=== PATIENT | male | born 1980 | race Two or more races ===

== ENCOUNTER 2024-04-19 22:31 | Emergency (ER) | payer MEDICAID, OTHER ==
[~2024-04-19] VITALS: Ht 162.6 cm; Wt 74.6 kg
[2024-04-19 23:00] VITALS: BP 135/83; PULSE 64; RESP 14; O2SAT 98
== END 2024-04-20 02:23 | disposition left against medical advice (07) ==
LOC: ER 22:31
DX: R51.9 Headache, unspecified (principal); Z53.21 Procedure and treatment not carried out due to patient leaving prior to being seen by health care provider

== ENCOUNTER 2024-11-30 04:21 | Inpatient (IN) | payer MEDICAID, OTHER ==
[~2024-11-30] VITALS: Ht 165.1 cm; Wt 71.4 kg
[2024-11-30] MEDS: IOHEXOL 300 MG/ML 100ML BOTTLE IJ ONE (04:58)
--- NOTE | 2024-11-30 04:58 | ED.PDOC ---
History of Present Illness HPI Comments 44-year-old male complains of epigastric and right upper quadrant abdominal pain for the last 4 days. Unprovoked. No known modifying factors. Associated with some nausea and occasional vomiting Time Seen by MD: 04:41 Allergies: Coded Allergies: NO KNOWN ALLERGIES (Unverified , 04/19/24) Home Meds No Active Prescriptions or Reported Meds Information Source: Patient Severity: Moderate Timing: Days Duration: Since onset Past Medical History PAST MEDICAL HISTORY: Denies Surgical History: Appendectomy Social History Smoker: Non-Smoker Alcohol: Rarely Drugs: Denies Drug Use Gastrointestinal: reports: abdominal pain, nausea, vomiting Physical Exam General Appearance: Moderate Distress, Normal HEENT: Normal ENT Inspection, Pharynx Normal, TMs Normal Neck: Full Range of Motion, Non-Tender, Normal, Normal Inspection Respiratory: Chest Non-Tender, Lungs Clear, No Accessory Muscle Use, No Respiratory Distress, Normal Breath Sounds Cardiovascular: No Edema, No JVD, No Murmur, No Gallop, Normal Peripheral Pulses, Regular Rate/Rhythm Breast Exam: Deferred Gastrointestinal: Soft, Tenderness Genitalia: Deferred Pelvic: Deferred Rectal: Deferred Extremities: No calf tenderness, Normal capillary refill, Normal inspection, Normal range of motion, Non-tender, No pedal edema Musculoskeletal : Apperance: Normal Neurologic: Alert, manager services II-XII nml as Tested, No Motor Deficits, Normal Affect, Normal Mood, No Sensory Deficits Cerebellar Function: Normal Reflexes: Normal Skin: Dry, Normal Color, Warm Lymphatic: No Adenopathy Was a procedure done? Was a procedure done?: No Differential Dx Considerations may include: Differential diagnosis includes but is not limited to: gastritis, peptic ulcers, pancreatitis, cholecystitis, bowel obstruction, cholangitis and others X-Ray, Labs, Meds, VS Vital Signs Date Time Temp Pulse Resp B/P (MAP) Pulse Ox O2 Delivery O2 Flow Rate FiO2 11/30/24 10:04 51 17 150/90 (110) 99 11/30/24 07:59 98.1 48 18 157/97 (117) 98 98.1 11/30/24 06:18 77 16 127/72 11/30/24 05:45 55 20 135/84 11/30/24 04:45 97.4 58 18 117/75 (89) 97 Lab Test 11/30/24 05:43 11/30/24 05:03 Range/Units Urine Color Light-yellow Yellow Urine Clarity Clear Clear Urine pH 5.5 5.0-9.0 Urine Specific [place] 1.011 1.001-1.035 Urine Protein Negative Negative Urine Ketones Negative Negative Urine Blood Negative Negative /uL Urine Nitrite Negative Negative Urine Bilirubin Negative Negative Urine Urobilinogen Normal Negative mg/dL Urine Leukocyte Esterase Negative Negative /uL Urine RBC <1 0 - 3 /hpf Urine WBC <1 0 - 3 /hpf Urine Squamous Epithelial Cells None seen <5 /hpf Urine Bacteria None seen None Seen /hpf Urine Glucose Normal Normal mg/dL White Blood Count 8.2 4.4-10.8 10^3/uL Red Blood Count 4.43 L 4.5-5.90 10^6/uL Hemoglobin 13.5 13.5-17.5 g/dL Hematocrit 39.4 L 41.0-53.0 % Mean Corpuscular Volume 89.0 80.0-100.0 fL Mean Corpuscular Hemoglobin 30.4 28.0-32.0 pg Mean Corpuscular Hemoglobin Concent 34.2 32.0-36.0 g/dL Red Cell Distribution Width 13.3 11.8-14.3 % Platelet Count 268 140-450 10^3/uL Mean Platelet Volume 7.7 6.9-10.8 fL Neutrophils (%) (Auto) 61.0 37.0-80.0 % Lymphocytes (%) (Auto) 31.2 10.0-50.0 % Monocytes (%) (Auto) 5.3 0.0-12.0 % Eosinophils (%) (Auto) 2.0 0.0-7.0 % Basophils (%) (Auto) 0.5 0.0-2.0 % Neutrophils # (Auto) 5.0 1.6-8.6 10 ^3/uL Lymphocytes # (Auto) 2.6 0.4-5.4 10 ^3/uL Monocytes # (Auto) 0.4 0-1.3 10 ^3/uL Eosinophils # (Auto) 0.2 0-0.8 10 ^3/uL Basophils # (Auto) 0 0-0.2 10 ^3/uL Nucleated Red Blood Cells 0.1 % Sodium Level 142 136-145 mmol/L Potassium Level 3.4 L 3.5-5.1 mmol/L Chloride Level 110 H 98-107 mmol/L Carbon Dioxide Level 24 20-31 mmol/L Anion Gap 8 5-15 Blood Urea Nitrogen 10 9-23 mg/dL Creatinine 0.89 0.700-1.30 mg/dL Glomerular Filtration Rate Calc 108 >90 mL/min BUN/Creatinine Ratio 11.2 10.0-20.0 Serum Glucose 104 74-106 mg/dL Calcium Level 8.9 8.7-10.4 mg/dL Total Bilirubin 0.5 0.2-1.0 mg/dL Aspartate Amino Transferase (AST) 55 H 13-40 U/L Alanine Aminotransferase (ALT) 34 7-40 U/L Alkaline Phosphatase 99 46-116 U/L Total Protein 6.4 5.7-8.2 g/dL Albumin 4.0 3.2-4.8 g/dL Lipase 54 H 12-53 U/L Current Medications Medications (Trade) Dose Ordered Sig/Denis Route Start Time Stop Time Status Last Admin Ondansetron HCl (Zofran) 4 mg ONCE ONCE IV 11/30/24 05:00 11/30/24 05:01 DC 11/30/24 05:45 Sodium Chloride 1,000 ml @ 1,000 mls/hr Q1H ONCE IVB 11/30/24 05:00 11/30/24 05:59 DC 11/30/24 05:42 Morphine Sulfate 4 mg ONCE ONCE IV 11/30/24 05:00 11/30/24 05:01 DC 11/30/24 05:45 X-Ray, Labs, Meds, VS Comment Course in the emergency department eventful patient came in complaining of an abdominal pain with nausea vomiting for the past three days Patient with a history of appendectomy CT of the abdomen and pelvis shows mostly small hemangioma the liver side CBC normal Urine negative CMP normal except for potassium of 3.4 and a lipase of 54 The ultrasound of the gallbladder slows cholelithiasis with large and mildly distended gallbladder and mildly distended biliary duct Patient will be admitted for further care Time of 1ST Reevaluation: 04:57 Reevaluation 1ST: Unchanged Time of 2ND Reevaluation: 08:18 Reevaluation 2ND: Unchanged Patient Education/Counseling: Diagnosis, Treatment, Need For Follow Up Family Education/Counseling: Diagnosis, Treatment, Need For Follow Up, No Family Present Departure 1 Departure Time of Disposition: 08:20 Impression: Primary Impression: Upper abdominal pain Additional Impression: Cholelithiasis and cholecystitis without obstruction Qualified Codes: K80.00 - Calculus of gallbladder with acute cholecystitis without obstruction Disposition: ADMITTED INPATIENT Condition: Stable e-Prescriptions No Active Prescriptions or Reported Meds Critical Care Note Critical Care Time?: No Stability Stability form required: Yes Unstable for transfer: Requires medication (Requires Med for stabilization) Heart Score Heart Score: Heart Score Response (Comments) Value History N/A 0 EKG N/A 0 Age <45 0 Risk Factors No known risk factors 0 Troponin N/A 0 Total 0 DEDRICK HUTTON MD Nov 30, 2024 04:58 LISETTE MARTÍNEZ MD Nov 30, 2024 08:21
[2024-11-30 05:39] LABS: Basophils # (auto) 0 10 ^3/uL (0-0.2); Basophils % (auto) 0.5 % (0.0-2.0); Eosinophils # (auto) 0.2 10 ^3/uL (0-0.8); Hematocrit 39.4 % (41.0-53.0); Hemoglobin 13.5 g/dL (13.5-17.5); Lymphocytes # (auto) 2.6 10 ^3/uL (0.4-5.4); Lymphocytes % (auto) 31.2 % (10.0-50.0); Mean Corpuscular Hemoglobin 30.4 pg (28.0-32.0); Mean Corpuscular Hgb Conc. 34.2 g/dL (32.0-36.0); Monocytes # (auto) 0.4 10 ^3/uL (0-1.3); Monocytes % (auto) 5.3 % (0.0-12.0); Nucleated Red Blood Cells % 0.1 %; Platelet Count (auto) 268 10^3/uL (140-450); Red Blood Cells 4.43 10^6/uL (4.5-5.90); Red Cell Distribution Width 13.3 % (11.8-14.3); White Blood Cell 8.2 10^3/uL (4.4-10.8)
[2024-11-30 05:42] LABS: Alanine Aminotransferase 34 U/L (7-40); Alkaline Phosphatase 99 U/L (46-116); Anion Gap 8 (5-15); BUN/Creatinine Ratio 11.2 (10.0-20.0); Blood Urea Nitrogen 10 mg/dL (9-23); Calcium 8.9 mg/dL (8.7-10.4); Carbon Dioxide 24 mmol/L (20-31); Glucose 104 mg/dL (74-106); Sodium 142 mmol/L (136-145)
[2024-11-30] MEDS: SODIUM CHLORIDE 0.9% 1,000 ML IVB ONE (05:42)
[2024-11-30 05:43] LABS: Bilirubin, Total 0.5 mg/dL (0.2-1.0); Total Protein 6.4 g/dL (5.7-8.2)
[2024-11-30 05:44] LABS: Urine Bacteria None Seen /hpf (None Seen)
[2024-11-30] MEDS: ONDANSETRON HCL 4 MG/2 ML VIAL IV ONE (05:45)
[2024-11-30] MEDS: MORPHINE SULFATE 4 MG/ML SYR/VIAL IV ONE (05:45)
[2024-11-30 05:59] LABS: Urine Blood Negative /uL (Negative); Urine Clarity Clear (Clear); Urine Color Light-Yellow (Yellow); Urine Protein, UAD Negative (Negative); Urine Specific Gravity 1.011 (1.001-1.035); Urine Squamous Epithelial Cell None Seen /hpf (<5); Urine Urobilinogen Normal (Negative); Urine WBC <1 /hpf (0 - 3); Urine pH 5.5 (5.0-9.0)
[2024-11-30 05:59] LABS: Aspartate Aminotransferase 55 U/L (13-40); Chloride 110 mmol/L (98-107); Lipase 54 U/L (12-53); Potassium 3.4 mmol/L (3.5-5.1)
--- NOTE | 2024-11-30 06:36 | DVH ---
Exam: CT CT AB PEL WITH IV CON ONLY History: abd pain Comparison Study: None available at time of dictation. Contrast: 100 cc Omnipaque 300 TECHNIQUE: A digital glass beveler image was obtained. During the uneventful, intravenous administration of c ontrast material, multislice data acquisition was obtained through the abdomen and pelvis. The data s et was subsequently reconstructed into axial images. Images were reviewed on a work station using a c ombination of axial and multiplanar using a variety of window levels and settings. All CT scans at this medical facility are performed using dose modulation techniques as appropriate t o a performed exam including the following: Automated exposure control was utilized; adjustment of th e MA and/or KV according to patient size; and use of iterative reconstruction technique. Radiation Dose Information: CT Dose: CTDI volume is 7.52 mGy. Dose-length product is 411.45 mGy*cm FINDINGS: Imaged portions of the lung bases appear unremarkable. There is a small hiatal hernia. 0.4 cm hyperenhancing lesion in the left hepatic lobe. There is a small amount of pericholecystic flu id without evidence of gallbladder distention. The spleen, pancreas and adrenal glands appear unremar kable. The kidneys enhance symmetrically without hydronephrosis. No evidence of bowel obstruction or focal bowel wall thickening. No free fluid, free air, or adenopat hy. No suspicious osseous lesion. IMPRESSION: 1. Pericholecystic fluid without evidence of gallbladder distention. Nonspecific. Right upper quadran t ultrasound is recommended 2. 0.4 cm hyperenhancing lesion of the left hepatic lobe may represent small hemangioma. Indeterminat e. Follow-up is recommended.
--- NOTE | 2024-11-30 08:05 | DVH ---
Procedure: US GALLBLADDER 11/30/2024 07:26 AM Indication: abn pain Comparison: None Technique: Grayscale and color images of the right upper quadrant were obtained. FINDINGS: ASCITES: None. LIVER: Liver measures 16 cm in craniocaudal. Liver parenchyma is homogeneous in echotexture. No foca l lesion is identified. No intrahepatic ductal dilatation. Normal directional flow is seen in the po rtal vein. GALLBLADDER: Mobile gallstone seen in gallbladder lumen. Small amount of sludge noted. Gallbladder w all appears thickened measuring up to 0.6 cm. Sonographic Horne's sign is negative. COMMON BILE DUCT: 0.8 cm in caliber. PANCREAS: Visualized portions are unremarkable. RIGHT KIDNEY: Normal in size, 10.5 cm in length without hydronephrosis. No focal lesions identified. AORTA, IVC: Visualized portions are unremarkable. OTHER: None. IMPRESSION: 1. Cholelithiasis, gallbladder sludge and gallbladder wall thickening with negative sonographic jassi y's sign that may represent chronic cholecystitis or developing acute cholecystitis. Recommend clinic al and biochemical correlation. 2. Mildly dilated CBD measuring 0.8 cm. Choledocholithiasis can not be ruled out. Correlate with bi lirubin. Further evaluation with MRCP could be completed if a distal obstructive process is suspected .
[2024-11-30] MEDS: KETOROLAC TROMETH 30 MG/ML 1ML VIAL IV ONE (08:41)
--- NOTE | 2024-11-30 10:21 | DVHHP2 ---
History of Present Illness Reason for Visit: Upper abdominal pain History of Present Illness The patient is a 44-year-old male who denies past medical history presented to [facility] ED with complaint of right upper quadrant abdominal pain for a proximally 4 days duration. Patient reports symptoms progressively get worse with associated nausea, vomiting, rating pain 7/10 numeric scale, getting worse today that prompted this visit. Patient was seen and evaluated in the ED, laboratory data shows WBC 8.2, platelets 268, sodium 142, potassium 3.4, BUN 10, creatinine 0.89, GFR 108, glucose 104, lipase 54, AST 55, ALT 34, blood pressure 150/90, heart rate 52, temperature 98.1 F, O2 saturation 99% on room air. Gallbladder ultrasound revealing cholelithiasis, gallbladder sludge and bladder wall thickening with negative sonographic Horne's sign that may represent chronic cholecystitis or developing acute cholecystitis, mildly dilated CBD measuring 0.8 cm, choledocholithiasis can not be rule out. Patient was given IV morphine sulfate 4 mg x 1, please see medication orders section in the computer. On my assessment, patient denied chest pain, no headache, no dizziness, no diarrhea, no nausea or vomiting at this moment, no fever, no chills.No other modifying factor or other associated signs and symptoms noted. The patient was admitted to the hospital for further evaluation and medical management. Past Medical History Denies past medical history Past Surgical History Appendectomy Family History Reviewed, noncontributory to the management of this case. Past Social History The patient lives at home, denies smoking, alcohol or illicit drugs abuse. Review of Systems Constitutional: No: Fever, Chills, Sweats, Weakness, Malaise, Other Eyes: No: Pain, Vision change, Conjunctivae inflammation, Eyelid inflammation, Other, Redness ENT: No: Ear pain, Ear discharge, Nose pain, Nose discharge, Nose congestion, Mouth pain, Mouth swelling, Throat pain, Throat swelling, Other Respiratory: No: Cough, Dry, Shortness of breath, SOB with excertion, Wheezing, Hemoptysis, Pleuritic Pain, Sputum, Wheezing, Other Cardiovascular: No: Chest Pain, Palpitations, Orthopnea, Paroxysmal Noc. Dyspnea, Edema, Lt Headedness, Other Gastrointestinal: Nausea, Vomiting, Abdominal Pain (Upper quadrant); No: Diarrhea, Constipation, Melena, Hematochezia, Other Genitourinary: No Dysuria, No Frequency, No Incontinence, No Hematuria, No Retention, No Other Musculoskeletal: No: other, neck pain, shoulder pain, arm pain, back pain, hand pain, leg pain, foot pain Skin: No: Rash, Lesions, Jaundice, Bruising, Other Neurological: No: Weakness, Numbness, Incoordination, Change in speech, Confusion, Seizures, Other Allergies: Coded Allergies: NO KNOWN ALLERGIES (Unverified , 04/19/24) Medications Current Medications Medications Dose Ordered Sig/Denis Route Start Time Stop Time Status Last Admin Dose Admin Sodium Chloride 10 ml Q8HR IV 11/30/24 14:00 UNV Acetaminophen/ Hydrocodone Bitart 1 tab Q4HP PRN PO 11/30/24 10:30 UNV Ondansetron HCl 4 mg Q4HP PRN IV 11/30/24 10:30 UNV Docusate Sodium 100 mg BIDPRN PRN PO 11/30/24 10:30 UNV Acetaminophen 650 mg Q6HP PRN PO 11/30/24 10:30 UNV Morphine Sulfate 2 mg Q4HPRN PRN IV 11/30/24 10:30 UNV Exam Vital Signs Vital Signs Date Time Temp Pulse Resp B/P (MAP) Pulse Ox O2 Delivery O2 Flow Rate FiO2 11/30/24 10:04 51 17 150/90 (110) 99 11/30/24 07:59 98.1 98.1 General Appearance: Alert, Oriented X3, Cooperative, No acute distress HEENT: Atraumatic, PERRLA, EOMI, Mucous membr. moist/pink Respiratory: Clear to auscultation, Normal air movement Cardiovascular: Regular rate, Normal S1, Normal S2, No murmurs Abdominal: Normal bowel sounds, Soft, No hepatospenomegaly, No masses, Other (Reports tenderness) Extremities: No clubbing, No cyanosis, No edema, Normal pulses, No tenderness/swelling Skin: No rashes, No breakdown, No significant lesion Neuro: Normal gait, Normal speech, Strength at 5/5 X4 ext, Normal tone, Sensation intact, Cranial nerves 3-12 NL, Reflexes 2+ Psych/Mental Status: Mental status NL, Mood NL Labs/Xrays Labs Test 11/30/24 05:43 11/30/24 05:03 Range/Units Urine Color Light-yellow Yellow Urine Clarity Clear Clear Urine pH 5.5 5.0-9.0 Urine Specific [place] 1.011 1.001-1.035 Urine Protein Negative Negative Urine Ketones Negative Negative Urine Blood Negative Negative /uL Urine Nitrite Negative Negative Urine Bilirubin Negative Negative Urine Urobilinogen Normal Negative mg/dL Urine Leukocyte Esterase Negative Negative /uL Urine RBC <1 0 - 3 /hpf Urine WBC <1 0 - 3 /hpf Urine Squamous Epithelial Cells None seen <5 /hpf Urine Bacteria None seen None Seen /hpf Urine Glucose Normal Normal mg/dL White Blood Count 8.2 4.4-10.8 10^3/uL Red Blood Count 4.43 L 4.5-5.90 10^6/uL Hemoglobin 13.5 13.5-17.5 g/dL Hematocrit 39.4 L 41.0-53.0 % Mean Corpuscular Volume 89.0 80.0-100.0 fL Mean Corpuscular Hemoglobin 30.4 28.0-32.0 pg Mean Corpuscular Hemoglobin Concent 34.2 32.0-36.0 g/dL Red Cell Distribution Width 13.3 11.8-14.3 % Platelet Count 268 140-450 10^3/uL Mean Platelet Volume 7.7 6.9-10.8 fL Neutrophils (%) (Auto) 61.0 37.0-80.0 % Lymphocytes (%) (Auto) 31.2 10.0-50.0 % Monocytes (%) (Auto) 5.3 0.0-12.0 % Eosinophils (%) (Auto) 2.0 0.0-7.0 % Basophils (%) (Auto) 0.5 0.0-2.0 % Neutrophils # (Auto) 5.0 1.6-8.6 10 ^3/uL Lymphocytes # (Auto) 2.6 0.4-5.4 10 ^3/uL Monocytes # (Auto) 0.4 0-1.3 10 ^3/uL Eosinophils # (Auto) 0.2 0-0.8 10 ^3/uL Basophils # (Auto) 0 0-0.2 10 ^3/uL Nucleated Red Blood Cells 0.1 % Sodium Level 142 136-145 mmol/L Potassium Level 3.4 L 3.5-5.1 mmol/L Chloride Level 110 H 98-107 mmol/L Carbon Dioxide Level 24 20-31 mmol/L Anion Gap 8 5-15 Blood Urea Nitrogen 10 9-23 mg/dL Creatinine 0.89 0.700-1.30 mg/dL Glomerular Filtration Rate Calc 108 >90 mL/min BUN/Creatinine Ratio 11.2 10.0-20.0 Serum Glucose 104 74-106 mg/dL Calcium Level 8.9 8.7-10.4 mg/dL Total Bilirubin 0.5 0.2-1.0 mg/dL Aspartate Amino Transferase (AST) 55 H 13-40 U/L Alanine Aminotransferase (ALT) 34 7-40 U/L Alkaline Phosphatase 99 46-116 U/L Total Protein 6.4 5.7-8.2 g/dL Albumin 4.0 3.2-4.8 g/dL Lipase 54 H 12-53 U/L PATIENT: AILIN PALACIOSACCT: [id number] UNIT: [id number] : 1980 LOC: ER ROOM / BED: / AGE / SEX: 44 / M ADM STATUS: REG ER SERVICE 0450 ORDERING PHYSICIAN: DEDRICK HUTTON MD PROCEDURE(s): ABPLIV - CT AB PEL WITH IV CON ONLY REASON: abd pain ORDER NUMBER(s): [id number], ACCESSION NUMBER(s): [id number] Exam: CT CT AB PEL WITH IV CON ONLY History: abd pain Comparison Study: None available at time of dictation. Contrast: 100 cc Omnipaque 300 TECHNIQUE: A digital pediatric registered nurse image was obtained. During the uneventful, intravenous administration of contrast material, multislice data acquisition was obtained through the abdomen and pelvis. The data set was subsequently reconstructed into axial images. Images were reviewed on a work station using a combination of axial and multiplanar using a variety of window levels and settings. All CT scans at this medical facility are performed using dose modulation techniques as appropriate to a performed exam including the following: Automated exposure control was utilized; adjustment of the MA and/or KV according to patient size; and use of iterative reconstruction technique. Radiation Dose Information: CT Dose: CTDI volume is 7.52 mGy. Dose-length product is 411.45 mGy*cm FINDINGS: Imaged portions of the lung bases appear unremarkable. There is a small hiatal hernia. 0.4 cm hyperenhancing lesion in the left hepatic lobe. There is a small amount of pericholecystic fluid without evidence of gallbladder distention. The spleen, pancreas and adrenal glands appear unremarkable. The kidneys enhance symmetrically without hydronephrosis. No evidence of bowel obstruction or focal bowel wall thickening. No free fluid, free air, or adenopathy. No suspicious osseous lesion. IMPRESSION: 1. Pericholecystic fluid without evidence of gallbladder distention. Nonspecific. Right upper quadrant ultrasound is recommended 2. 0.4 cm hyperenhancing lesion of the left hepatic lobe may represent small hemangioma. Indeterminate. Follow-up is recommended. ORDERING PHYSICIAN: LISETTE MARTÍNEZ MD PROCEDURE(s): GBUS - GALLBLADDER REASON: abn pain ORDER NUMBER(s): [id number], ACCESSION NUMBER(s): [id number] Procedure: US GALLBLADDER 11/30/2024 07:26 AM Indication: abn pain Comparison: None Technique: Grayscale and color images of the right upper quadrant were obtained. FINDINGS: ASCITES: None. LIVER: Liver measures 16 cm in craniocaudal. Liver parenchyma is homogeneous in echotexture. No focal lesion is identified. No intrahepatic ductal dilatation. Normal directional flow is seen in the portal vein. GALLBLADDER: Mobile gallstone seen in gallbladder lumen. Small amount of sludge noted. Gallbladder wall appears thickened measuring up to 0.6 cm. Sonographic Horne's sign is negative. COMMON BILE DUCT: 0.8 cm in caliber. PANCREAS: Visualized portions are unremarkable. RIGHT KIDNEY: Normal in size, 10.5 cm in length without hydronephrosis. No focal lesions identified. AORTA, IVC: Visualized portions are unremarkable. OTHER: None. IMPRESSION: 1. Cholelithiasis, gallbladder sludge and gallbladder wall thickening with negative sonographic horne's sign that may represent chronic cholecystitis or developing acute cholecystitis. Recommend clinical and biochemical correlation. 2. Mildly dilated CBD measuring 0.8 cm. Choledocholithiasis can not be ruled out. Correlate with bilirubin. Further evaluation with MRCP could be completed if a distal obstructive process is suspected. Assessment/Plan Assessment/Plan Upper abdominal pain Hypokalemia Cholelithiasis and cholecystitis without obstruction Calculus of gallbladder with acute cholecystitis without obstruction Plan 1. Admit to med surge unit 2. Breathing treatment 3. Pain control management 4. Management of fluids and electrolytes 5. Consultation for surgical 6. Diagnostic tests abdomen/pelvis CT 7. DVT prophylaxis-on SCDs 8. Repeat labs CBC, CMP in a.m. 9. Continue with current medical management 10. Treatment plan discussed with patient and RN. Patient verbalized understanding. Plan discussed with: Patient, Other (RN) My Orders Orders - SUDHIR YATES DNP Procedure Category Date Status Time Allergies ALAINA 11/30/24 In Process 10:16 Code Status CODE 11/30/24 Transmitted 10:16 Sodium Chloride Lock PHA 11/30/24 Logged (Saline Lock Ns) 14:00 Oxygen Per Hour RT 11/30/24 Transmitted 10:16 Hydrocodone-Acet PHA 11/30/24 Logged 5/325mg Tab ([place] 10:30 Ondansetron Hcl PHA 11/30/24 Logged (Zofran) 10:30 Docusate Sodium PHA 11/30/24 Logged Capsule (Colace 10:30 Complete Blood Count LAB 12/01/24 Verified 04:00 Comprehensive LAB 12/01/24 Verified Metabolic Panel 04:00 Condition: Serious ALAINA 11/30/24 In Process 10:16 Acetaminophen Tablet PHA 11/30/24 Logged (Tylenol Tablet) 10:30 Clear Liq Diet DIET 11/30/24 Transmitted Lunch Bedrest With Bathroom ALAINA 11/30/24 In Process Privileg 10:16 Morphine Sulfate PHA 11/30/24 Logged Injection 10:30 Sequential ALAINA 11/30/24 In Process Compression Device Problem List: (1) Upper abdominal pain (2) Hypokalemia (3) Cholelithiasis and cholecystitis without obstruction (4) Calculus of gallbladder with acute cholecystitis without obstruction Date of Service: Nov 30, 2024 Billing Provider: SUDHIR YATES DNP Common Visit Codes: 77927-IVEOCUU INP/OBS CARE (MOD) SUDHIR YATES DNP Nov 30, 2024 10:21
[2024-11-30] MEDS ORDERED: HYDROcodone-ACET 5/325MG TAB PO PRN (10:30)
[2024-11-30] MEDS ORDERED: DOCUSATE SOD 100 MG CAP PO PRN (10:30)
[2024-11-30] MEDS ORDERED: ONDANSETRON HCL 4 MG/2 ML VIAL IV PRN (10:30)
[2024-11-30] MEDS ORDERED: MORPHINE SULFATE INJ 2 MG/ml SYRG IV PRN ×2 (10:30)
[2024-11-30] MEDS ORDERED: ACETAMINOPHEN 325 MG TAB PO PRN (10:30)
[2024-11-30] MEDS ORDERED: NITROGLYCERIN 0.4 MG SL TAB SL PRN (10:30)
[2024-11-30 11:17] VITALS: BP 149/90; PULSE 55; RESP 17; TEMP 98; O2SAT 99
[2024-11-30] MEDS: POTASSIUM CHL 20 Meq TABLET PO ONE (11:39)
[2024-11-30] MEDS: SODIUM CHLOR 0.9% PF (SALINE LOCK) 10ML VIAL/SYR IV SCH (14:06)
[2024-11-30 14:27] VITALS: BP 139/93; PULSE 65; RESP 16; TEMP 97.5; O2SAT 97
[2024-11-30 14:30] VITALS: PULSE 65; RESP 16; O2SAT 97
[2024-11-30 17:56] VITALS: BP 138/90; PULSE 66; RESP 16; TEMP 97.5; O2SAT 97
[2024-11-30 21:00] VITALS: BP 136/90; PULSE 80; RESP 20; TEMP 98.8; O2SAT 99
[2024-12-01 05:00] VITALS: BP 117/74; PULSE 94; RESP 16; TEMP 98.2; O2SAT 96
[2024-12-01 06:53] LABS: Anion Gap 8 (5-15); BUN/Creatinine Ratio 10.8 (10.0-20.0); Blood Urea Nitrogen 11 mg/dL (9-23); Calcium 10.1 mg/dL (8.7-10.4); Carbon Dioxide 26 mmol/L (20-31); Glucose 92 mg/dL (74-106); Potassium 4.2 mmol/L (3.5-5.1); Sodium 141 mmol/L (136-145)
[2024-12-01 06:54] LABS: Albumin 4.4 g/dL (3.2-4.8); Total Protein 6.9 g/dL (5.7-8.2)
[2024-12-01 07:08] LABS: Alanine Aminotransferase 134 U/L (7-40); Alkaline Phosphatase 124 U/L (46-116); Aspartate Aminotransferase 82 U/L (13-40); Chloride 107 mmol/L (98-107)
[2024-12-01 07:12] LABS: Basophils # (auto) 0 10 ^3/uL (0-0.2); Basophils % (auto) 0.5 % (0.0-2.0); Eosinophils # (auto) 0.1 10 ^3/uL (0-0.8); Eosinophils % (auto) 2.3 % (0.0-7.0); Hematocrit 43.6 % (41.0-53.0); Hemoglobin 15.1 g/dL (13.5-17.5); Lymphocytes # (auto) 1.9 10 ^3/uL (0.4-5.4); Lymphocytes % (auto) 31.9 % (10.0-50.0); Mean Corpuscular Hemoglobin 30.6 pg (28.0-32.0); Mean Corpuscular Hgb Conc. 34.7 g/dL (32.0-36.0); Mean Corpuscular Volume 88.2 fL (80.0-100.0); Monocytes # (auto) 0.4 10 ^3/uL (0-1.3); Monocytes % (auto) 7.4 % (0.0-12.0); Neutrophils # (auto) 3.5 10 ^3/uL (1.6-8.6); Neutrophils % (auto) 57.9 % (37.0-80.0); Nucleated Red Blood Cells % 0.1 %; Platelet Count (auto) 317 10^3/uL (140-450); Red Blood Cells 4.94 10^6/uL (4.5-5.90); Red Cell Distribution Width 13.6 % (11.8-14.3); White Blood Cell 6.1 10^3/uL (4.4-10.8)
[2024-12-01 08:00] VITALS: PULSE 94; RESP 16; O2SAT 96
[2024-12-01 08:52] VITALS: BP 110/71; PULSE 64; RESP 18; TEMP 97.7; O2SAT 96
[2024-12-01 12:00] VITALS: BP 146/94; PULSE 60; RESP 19; TEMP 97.7; O2SAT 98
--- NOTE | 2024-12-01 12:14 | DVHCONRES ---
Date Seen: Dec 01, 2024 Resident Creating Document: AYLIN ROJAS RESIDENT Referring Physician Theron Shankar DNP History of Present Illness The patient is a 44-year-old male with a past medical history of appendicitis s/p appendectomy presented to the [facility] ED with the chief complaint of right upper quadrant abdominal pain for a proximally 4 days duration. Per patient, the pain was rated 7/10, progressively became worse and it was associated with nausea, vomiting.In the ED, patient denied fever, chills, chest pain, shortness of headache, dizziness, diarrhea. Patient's vitals BP:150/90, heart rate 52, temp 98.1 F,SpO2 99% on RA. Blood work showed WBC 8.2, platelets 268, sodium 142, potassium 3.4, BUN 10, creatinine 0.89, GFR 108, glucose 104, lipase 54, AST 55, ALT 34. Imaging studies gallbladder US revealed cholelithiasis, gallbladder sludge and bladder wall thickening with negative sonographic Horne's sign, mildly dilated CBD measuring 0.8 cm, choledocholithiasis can not be rule out. Thus, GI services was consulted for management. At the time of my interaction with patient, patient was lying in bed. He denied any chest pain, shortness of breaths, any diarrhea, or hematochezia. However, patient did mentioned having abdominal pain although better than yesterday. So far, gallbladder scan showed cholelithiasis with mildly dilated CBD. Will order an MRCP to rule out choledocholithiasis and also had surgical consult board. Get lipase added to today's lab and repeat CMP with lipase tomorrow. Past Medical History Appendicitis s/p appendectomy Past Surgical History Appendectomy Family History: Hypertension G8 FATHER Family History Noncontributory to the management of this case. Social History lives at home Denies smoking smoking, alcohol or illicit drugs abuse. Allergies: Coded Allergies: NO KNOWN ALLERGIES (Unverified , 04/19/24) Home Meds No Active Prescriptions or Reported Meds Current Medications Current Medications Medications (Trade) Dose Ordered Sig/Denis Route PRN Reason Start Time Stop Time Status Last Admin Sodium Chloride (Saline Lock Ns) 10 ml Q8HR IV 11/30/24 14:00 12/01/24 05:46 Review of Systems Constitutional: Denies fever no chills no feeling of malaise HEENT: Denies headache, ear pain, ear discharges, conjunctivitis, nasal discharge throat pain Cardiovascular: Denies chest pain, palpitation, orthopnea, PND, or pedal edema Respiratory: Denies shortness of breath, cough, sputum production, hemoptysis, GI: Nausea, vomiting and abdominal pain. Denied hematemesis, hematochezia, : Denies frequency, urgency, hematuria, Endocrine: Denies unintentional weight gain or weight loss, feeling of hot flashes, Stephen: Denies easy bruising, bleeding disorders, epistaxis Musculoskeletal: Denies joint pains, muscle aches Psych: No evidence of depression, joe, suicidal ideation Vital Signs Vital Signs Date Time Temp Pulse Resp B/P (MAP) Pulse Ox O2 Delivery O2 Flow Rate FiO2 12/01/24 08:52 97.7 64 18 110/71 (84) 96 97.7 11/30/24 20:00 Room Air* 0 21 Physical Exam General examination- Not in acute distress HEENT: PEERLA, no acute nasal discharge Chest: S1-S2 audible, rate and rhythm regular, no murmur Lung: CTAB, no wheeze or rhonchi Abdomen: Nondistended, BS+,Mild tenderness; No guarding, no organomegaly Musculoskeletal: no acute joint swelling or tenderness Lower extremity: no leg edema Neurological: cranial nerves intact, no acute dysarthria or dysphagia Psychiatry-- Normal mood and affect Skin- no acute rash or purpura Labs/Diagnostic Data Labs Test 12/01/24 06:07 11/30/24 05:43 11/30/24 05:03 Range/Units White Blood Count 6.1 # 4.4-10.8 10^3/uL Red Blood Count 4.94 4.5-5.90 10^6/uL Hemoglobin 15.1 13.5-17.5 g/dL Hematocrit 43.6 # 41.0-53.0 % Mean Corpuscular Volume 88.2 80.0-100.0 fL Mean Corpuscular Hemoglobin 30.6 28.0-32.0 pg Mean Corpuscular Hemoglobin Concent 34.7 32.0-36.0 g/dL Red Cell Distribution Width 13.6 11.8-14.3 % Platelet Count 317 140-450 10^3/uL Mean Platelet Volume 7.9 6.9-10.8 fL Neutrophils (%) (Auto) 57.9 37.0-80.0 % Lymphocytes (%) (Auto) 31.9 10.0-50.0 % Monocytes (%) (Auto) 7.4 0.0-12.0 % Eosinophils (%) (Auto) 2.3 0.0-7.0 % Basophils (%) (Auto) 0.5 0.0-2.0 % Neutrophils # (Auto) 3.5 1.6-8.6 10 ^3/uL Lymphocytes # (Auto) 1.9 0.4-5.4 10 ^3/uL Monocytes # (Auto) 0.4 0-1.3 10 ^3/uL Eosinophils # (Auto) 0.1 0-0.8 10 ^3/uL Basophils # (Auto) 0 0-0.2 10 ^3/uL Nucleated Red Blood Cells 0.1 % Sodium Level 141 136-145 mmol/L Potassium Level 4.2 3.5-5.1 mmol/L Chloride Level 107 98-107 mmol/L Carbon Dioxide Level 26 20-31 mmol/L Anion Gap 8 5-15 Blood Urea Nitrogen 11 9-23 mg/dL Creatinine 1.02 0.700-1.30 mg/dL Glomerular Filtration Rate Calc 93 >90 mL/min BUN/Creatinine Ratio 10.8 10.0-20.0 Serum Glucose 92 74-106 mg/dL Calcium Level 10.1 8.7-10.4 mg/dL Total Bilirubin 1.0 0.2-1.0 mg/dL Aspartate Amino Transferase (AST) 82 H 13-40 U/L Alanine Aminotransferase (ALT) 134 H 7-40 U/L Alkaline Phosphatase 124 H 46-116 U/L Total Protein 6.9 5.7-8.2 g/dL Albumin 4.4 3.2-4.8 g/dL Urine Color Light-yellow Yellow Urine Clarity Clear Clear Urine pH 5.5 5.0-9.0 Urine Specific [place] 1.011 1.001-1.035 Urine Protein Negative Negative Urine Ketones Negative Negative Urine Blood Negative Negative /uL Urine Nitrite Negative Negative Urine Bilirubin Negative Negative Urine Urobilinogen Normal Negative mg/dL Urine Leukocyte Esterase Negative Negative /uL Urine RBC <1 0 - 3 /hpf Urine WBC <1 0 - 3 /hpf Urine Squamous Epithelial Cells None seen <5 /hpf Urine Bacteria None seen None Seen /hpf Urine Glucose Normal Normal mg/dL Lipase 54 H 12-53 U/L Assessment Possible Acute cholecystitis --> Elevated liver enzymes --> US evidence of Cholelithiasis, gallbladder sludge and gallbladder wall thickening with negative sonographic horne's sign that may represent chronic cholecystitis or developing acute cholecystitis. ->Antibiotics: Zosyn 3.375 mg q8 hrs ( GFR: 93) --> Surgical consult Possible acute choledocholithiasis --> Elevated liver enzymes --> Mildly dilated CBD measuring 0.8 cm. --> MRCP ordered --> If MRCP is positive for choledocholithiasis, we will refer patient to higher level of care for ERCP Questionable evolving gallstone pancreatitis -->Lipase 54 --> repeat lipase for today pending --> Trend lipase Hypokalemia Improved --> K: 3.4 --> Monitor electrolytes closely History of appendectomy Goal of care discussed for more than 35 minutes case and plan discussed with DR. Reema Godinez Thank you for allowing us to participate in the care of this patient. Please call if you have any questions or concerns. Plan discussed with: Patient AYLIN ROJAS RESIDENT Dec 01, 2024 12:14
--- NOTE | 2024-12-01 13:04 | DVH ---
MRI Abdomen, MRCP without IV Contrast Exam Date: 12/01/2024 10:42 AM Comparison: None History: dilated CBD Technique: Multisequence multiplanar MRI images were obtained of the abomen. MRCP including 3D SPACE, Radial 3D slabs and SPACE 3D MIP images Findings: Liver: The liver is normal in size without focal lesions. Normal liver contour. Spleen: Unremarkable. Pancreas: The pancreas is normal in appearance without focal lesions. Gallbladder and ducts: Cholelithiasis noted without secondary findings of cholecystitis or biliary ob struction. The cystic duct, right and left hepatic ducts, common hepatic duct, and common bile ducts are unremarkable. The pancreatic duct is within normal limits. Adrenal glands: Unremarkable. Kidneys: Normal enhancement without suspicious lesions or hydronephrosis. Visualized bowel: Grossly unremarkable. Vasculature: Unremarkable. Lymphadenopathy: No evidence for lymphadenopathy. Ascites: Absent. Musculoskeletal: Bone marrow signal is normal. IMPRESSION: 1. Cholelithiasis. No evidence of biliary obstruction. Enhancing liver lesion seen on prior CT is not well seen on noncontrast MRI. HS:Linda
[2024-12-01] MEDS: PIPERACILLIN-TAZOB 3.375GM 100 ML IV ONE (13:58)
[2024-12-01] MEDS: D5W/SOD CHLO 0.9% 1,000 ML IV SCH (13:58)
[2024-12-01 16:08] VITALS: BP 132/97; PULSE 73; RESP 17; TEMP 98.1; O2SAT 99
[2024-12-01 16:54] LABS: INR 1.05 (0.9-1.15); Partial Thromboplastin Time 29.4 SEC (24.5-34.5); Prothrombin Time 11.1 sec (9.3-11.8)
--- NOTE | 2024-12-01 17:10 | DVHPN2 ---
Subjective states abdominal pain is better today..no nausea or vomiting Changes from previous H/P or p: No Changes Eyes: No Pain, No Vision change, No Conjunctivae inflammation, No Eyelid inflammation, No Other, No Redness ENT: No Ear pain, No Ear discharge, No Nose pain, No Nose discharge, No Nose congestion, No Mouth pain, No Mouth swelling, No Throat pain, No Throat swelling, No Other Cardiovascular: No Chest Pain, No Palpitations, No Orthopnea, No Paroxysmal Noc. Dyspnea, No Edema, No Lt Headedness, No Other Respiratory: No Cough, No Dry, No Shortness of breath, No SOB with excertion, No Wheezing, No Hemoptysis, No Pleuritic Pain, No Sputum, No Other Gastrointestinal: Nausea, Vomiting, Abdominal Pain (Upper quadrant); No Diarrhea, No Constipation, No Melena, No Hematochezia, No Other Genitourinary: No Dysuria, No Frequency, No Incontinence, No Hematuria, No Retention, No Other Musculoskeletal: No other, No neck pain, No shoulder pain, No arm pain, No back pain, No hand pain, No leg pain, No foot pain Skin: No Rash, No Lesions, No Jaundice, No Bruising, No Other Objective Vitals Vital Signs Date Time Temp Pulse Resp B/P (MAP) Pulse Ox O2 Delivery O2 Flow Rate FiO2 12/01/24 16:08 98.1 73 17 132/97 (109) 99 98.1 11/30/24 20:00 Room Air* 0 21 Intake/Output Intake and Output 12/01/24 07:00 Intake Total 910 ml Balance 910 ml Intake Oral 910 ml # Voids 1 General Appearance: Alert, Oriented X3, Cooperative, No acute distress Cardiovascular: Regular rate, Normal S1, Normal S2 Abdomen: Normal bowel sounds, Soft, No tenderness, No hepatospenomegaly Musculoskeletal: Normal sensory function, Normal motor function Neuro: Normal gait, Normal speech, Strength at 5/5 X4 ext, Normal tone, S ensation intact, Cranial nerves 3-12 NL, Reflexes 2+ Psych/Mental Status: Mental status NL Medications Current Medications Medications Dose Ordered Sig/Denis Route Start Time Stop Time Status Last Admin Dose Admin Sodium Chloride 10 ml Q8HR IV 11/30/24 14:00 12/01/24 13:58 10 ML Acetaminophen/ Hydrocodone Bitart 1 tab Q4HP PRN PO 11/30/24 10:30 Ondansetron HCl 4 mg Q4HP PRN IV 11/30/24 10:30 Docusate Sodium 100 mg BIDPRN PRN PO 11/30/24 10:30 Acetaminophen 650 mg Q6HP PRN PO 11/30/24 10:30 Morphine Sulfate 2 mg Q4HPRN PRN IV 11/30/24 10:30 Nitroglycerin 0.4 mg Q5MINP PRN SL 11/30/24 10:30 Morphine Sulfate 2 mg Q30M PRN IV 11/30/24 10:30 Piperacillin Sod/ Tazobactam Sod 100 ml @ 25 mls/hr Q8H IV 12/01/24 20:00 Dextrose/Sodium Chloride 1,000 ml @ 100 mls/hr Q10H IV 12/01/24 12:30 12/01/24 13:58 100 MLS/HR Laboratory Results Laboratory Tests 12/01/24 06:07 Chemistry Test 12/01/24 06:07 Albumin 4.4 g/dL (3.2-4.8) Calcium Level 10.1 mg/dL (8.7-10.4) Total Protein 6.9 g/dL (5.7-8.2) Coagulation Test 12/01/24 14:30 Prothrombin Time 11.1 sec (9.3-11.8) Prothrombin Time INR 1.05 (0.9-1.15) Activated Partial Thromboplast Time 29.4 SEC (24.5-34.5) Lipid panel Test 12/01/24 06:07 Lipase 40 U/L (12-53) LFT Test 12/01/24 06:07 Alanine Aminotransferase (ALT) 134 U/L (7-40) H Alkaline Phosphatase 124 U/L (46-116) H Aspartate Amino Transferase (AST) 82 U/L (13-40) H Total Bilirubin 1.0 mg/dL (0.2-1.0) Urinalysis Test 11/30/24 05:43 Urine Color Light-yellow (Yellow) Urine Clarity Clear (Clear) Urine pH 5.5 (5.0-9.0) Urine Specific [place] 1.011 (1.001-1.035) Urine Protein Negative (Negative) Urine Ketones Negative (Negative) Urine Blood Negative /uL (Negative) Urine Nitrite Negative (Negative) Urine Bilirubin Negative (Negative) Urine Urobilinogen Normal mg/dL (Negative) Urine Leukocyte Esterase Negative /uL (Negative) Urine RBC <1 /hpf (0 - 3) Urine WBC <1 /hpf (0 - 3) Urine Squamous Epithelial Cells None seen /hpf (<5) Urine Bacteria None seen /hpf (None Seen) Urine Glucose Normal mg/dL (Normal) Labs and/or images reviewed: Labs reviewed by me, Image(s) reviewed by me Assessment/Plan Assessment/Plan biliary colic//acute cholelithiasis- npo/ivf/iv antibiotics//surgery consulted ambulatory status Plan discussed with: Patient, Spouse Date of Service: Dec 01, 2024 Billing Provider: BLUE LONDON MD Common Visit Codes: [id number] INP/OBS CARE(MOD) BLUE LONDON MD Dec 01, 2024 17:10
[2024-12-01] MEDS: PIPERACILLIN-TAZOB 3.375GM 100 ML IV SCH (19:53)
[2024-12-01 21:00] VITALS: BP 123/88; PULSE 71; RESP 20; TEMP 98.4; O2SAT 97
[2024-12-02] VITALS (8 sets, daily range): BP systolic 107–141; BP diastolic 69–97; PULSE 55–82; RESP 16–20; TEMP 97.3–98.2; O2SAT 96–99
[2024-12-02 06:41] LABS: Basophils # (auto) 0 10 ^3/uL (0-0.2); Basophils % (auto) 0.6 % (0.0-2.0); Eosinophils # (auto) 0.2 10 ^3/uL (0-0.8); Eosinophils % (auto) 3.1 % (0.0-7.0); Hematocrit 43.3 % (41.0-53.0); Hemoglobin 14.9 g/dL (13.5-17.5); Lymphocytes # (auto) 2.1 10 ^3/uL (0.4-5.4); Lymphocytes % (auto) 35.5 % (10.0-50.0); Mean Corpuscular Hemoglobin 30.3 pg (28.0-32.0); Mean Corpuscular Hgb Conc. 34.3 g/dL (32.0-36.0); Mean Corpuscular Volume 88.4 fL (80.0-100.0); Monocytes # (auto) 0.5 10 ^3/uL (0-1.3); Monocytes % (auto) 8.6 % (0.0-12.0); Neutrophils % (auto) 52.2 % (37.0-80.0); Nucleated Red Blood Cells % 0.1 %; Platelet Count (auto) 293 10^3/uL (140-450); Red Cell Distribution Width 13.4 % (11.8-14.3); White Blood Cell 5.8 10^3/uL (4.4-10.8)
[2024-12-02 07:08] LABS: Albumin 4.4 g/dL (3.2-4.8); Amylase 90 U/L (30-118); Anion Gap 7 (5-15); BUN/Creatinine Ratio 7.8 (10.0-20.0); Carbon Dioxide 26 mmol/L (20-31); Chloride 107 mmol/L (98-107); Glucose 101 mg/dL (74-106); Lipase 41 U/L (12-53); Sodium 140 mmol/L (136-145)
[2024-12-02 07:09] LABS: Bilirubin, Total 1.1 mg/dL (0.2-1.0); Total Protein 6.9 g/dL (5.7-8.2)
[2024-12-02 07:11] LABS: Alanine Aminotransferase 107 U/L (7-40); Alkaline Phosphatase 123 U/L (46-116); Aspartate Aminotransferase 54 U/L (13-40); Blood Urea Nitrogen 8 mg/dL (9-23)
[2024-12-02 10:01] LABS: Amphetamine Screen, Urine Neg (NEGATIVE); Barbiturate Scree,Urine Neg (NEGATIVE); Benzodiazephine Screen, Urine Neg (NEGATIVE); Cannabinoid Screen, Urine Neg (NEGATIVE); Cocaine Screen, Urine Neg (NEGATIVE); Opiate Scree,Urine Neg (NEGATIVE); Phencyclidine Screen, Urine Neg (NEGATIVE)
--- NOTE | 2024-12-02 10:06 | DVHPN2 ---
Subjective states abdominal pain is better today..no nausea or vomiting Changes from previous H/P or p: No Changes Eyes: No Pain, No Vision change, No Conjunctivae inflammation, No Eyelid inflammation, No Other, No Redness ENT: No Ear pain, No Ear discharge, No Nose pain, No Nose discharge, No Nose congestion, No Mouth pain, No Mouth swelling, No Throat pain, No Throat swelling, No Other Cardiovascular: No Chest Pain, No Palpitations, No Orthopnea, No Paroxysmal Noc. Dyspnea, No Edema, No Lt Headedness, No Other Respiratory: No Cough, No Dry, No Shortness of breath, No SOB with excertion, No Wheezing, No Hemoptysis, No Pleuritic Pain, No Sputum, No Other Gastrointestinal: Nausea, Vomiting, Abdominal Pain (Upper quadrant); No Diarrhea, No Constipation, No Melena, No Hematochezia, No Other Genitourinary: No Dysuria, No Frequency, No Incontinence, No Hematuria, No Retention, No Other Musculoskeletal: No other, No neck pain, No shoulder pain, No arm pain, No back pain, No hand pain, No leg pain, No foot pain Skin: No Rash, No Lesions, No Jaundice, No Bruising, No Other Objective Vitals Vital Signs Date Time Temp Pulse Resp B/P (MAP) Pulse Ox O2 Delivery O2 Flow Rate FiO2 12/02/24 08:28 98.2 60 19 117/81 (93) 97 98.2 12/01/24 20:00 Room Air* 0 21 Intake/Output Intake and Output 12/02/24 07:00 Intake Total 2300 ml Output Total 400 ml Balance 1900 ml Intake Oral 1100 ml IV Total 1200 ml Output Urine Total 400 ml # Voids 3 General Appearance: Alert, Oriented X3, Cooperative, No acute distress Cardiovascular: Regular rate, Normal S1, Normal S2 Abdomen: Normal bowel sounds, Soft, No tenderness, No hepatospenomegaly Musculoskeletal: Normal sensory function, Normal motor function Neuro: Normal gait, Normal speech, Strength at 5/5 X4 ext, Normal tone, S ensation intact, Cranial nerves 3-12 NL, Reflexes 2+ Psych/Mental Status: Mental status NL Medications Current Medications Medications Dose Ordered Sig/Denis Route Start Time Stop Time Status Last Admin Dose Admin Sodium Chloride 10 ml Q8HR IV 11/30/24 14:00 12/02/24 05:20 10 ML Acetaminophen/ Hydrocodone Bitart 1 tab Q4HP PRN PO 11/30/24 10:30 Ondansetron HCl 4 mg Q4HP PRN IV 11/30/24 10:30 Docusate Sodium 100 mg BIDPRN PRN PO 11/30/24 10:30 Acetaminophen 650 mg Q6HP PRN PO 11/30/24 10:30 Morphine Sulfate 2 mg Q30M PRN IV 11/30/24 10:30 Piperacillin Sod/ Tazobactam Sod 100 ml @ 25 mls/hr Q8H IV 12/01/24 20:00 12/02/24 05:20 25 MLS/HR Dextrose/Sodium Chloride 1,000 ml @ 100 mls/hr Q10H IV 12/01/24 12:30 12/02/24 05:30 100 MLS/HR Laboratory Results Laboratory Tests 12/02/24 06:08 Chemistry Test 12/02/24 06:08 Albumin 4.4 g/dL (3.2-4.8) Calcium Level 10.0 mg/dL (8.7-10.4) Total Protein 6.9 g/dL (5.7-8.2) Coagulation Test 12/01/24 14:30 Prothrombin Time 11.1 sec (9.3-11.8) Prothrombin Time INR 1.05 (0.9-1.15) Activated Partial Thromboplast Time 29.4 SEC (24.5-34.5) Lipid panel Test 12/02/24 06:08 Lipase 41 U/L (12-53) LFT Test 12/02/24 06:08 Alanine Aminotransferase (ALT) 107 U/L (7-40) H Alkaline Phosphatase 123 U/L (46-116) H Aspartate Amino Transferase (AST) 54 U/L (13-40) H Total Bilirubin 1.1 mg/dL (0.2-1.0) H Urinalysis Test 11/30/24 05:43 Urine Color Light-yellow (Yellow) Urine Clarity Clear (Clear) Urine pH 5.5 (5.0-9.0) Urine Specific [place] 1.011 (1.001-1.035) Urine Protein Negative (Negative) Urine Ketones Negative (Negative) Urine Blood Negative /uL (Negative) Urine Nitrite Negative (Negative) Urine Bilirubin Negative (Negative) Urine Urobilinogen Normal mg/dL (Negative) Urine Leukocyte Esterase Negative /uL (Negative) Urine RBC <1 /hpf (0 - 3) Urine WBC <1 /hpf (0 - 3) Urine Squamous Epithelial Cells None seen /hpf (<5) Urine Bacteria None seen /hpf (None Seen) Urine Glucose Normal mg/dL (Normal) Labs and/or images reviewed: Labs reviewed by me, Image(s) reviewed by me Assessment/Plan Assessment/Plan biliary colic//acute cholelithiasis- npo/ivf/iv antibiotics//surgery consulted-mrcp no cbd dilatation- consult /cleared by gi hemangioma liver ambulatory status Plan discussed with: Patient, Other Date of Service: Dec 02, 2024 Billing Provider: BLUE LONDON MD Common Visit Codes: [id number] INP/OBS CARE(MOD) BLUE LONDON MD Dec 02, 2024 10:06
--- NOTE | 2024-12-02 12:35 | DVHPN2 ---
Progress Note Date Seen: Dec 02, 2024 Resident Creating Document: AYLIN ROJAS RESIDENT Medical Necessity Reason Pt with a Central, PICC or Fol: No Medical Necessity Reason CHOLELITHIASIS Subjective Review of Systems The patient is a 44-year-old male with a past medical history of appendicitis s/p appendectomy presented to the [facility] ED with the chief complaint of right upper quadrant abdominal pain for a proximally 4 days duration. Per patient, the pain was rated 7/10, progressively became worse and it was associated with nausea, vomiting.In the ED, patient denied fever, chills, chest pain, shortness of headache, dizziness, diarrhea. Patient's vitals BP:150/90, heart rate 52, temp 98.1 F,SpO2 99% on RA. Blood work showed WBC 8.2, platelets 268, sodium 142, potassium 3.4, BUN 10, creatinine 0.89, GFR 108, glucose 104, lipase 54, AST 55, ALT 34. Imaging studies gallbladder US revealed cholelithiasis, gallbladder sludge and bladder wall thickening with negative sonographic Loredo's sign, mildly dilated CBD measuring 0.8 cm, choledocholithiasis can not be rule out. Thus, GI services was consulted for management. PN: 12/02/2023 Patient is seen and examined at the bedside today with family present. He denied any abdominal pain nausea or vomiting. Patient said he is feeling well and was wondering when he will get to see the surgeon. His lab values today total bilirubin of 1.1, AST on: 54, ALT 107, ALP 123. MRCP is negative for choledocholithiasis. pending surgical consult Objective vital signs Vital Sign Date Time Temp Pulse Resp B/P (MAP) Pulse Ox O2 Delivery O2 Flow Rate FiO2 12/02/24 08:28 98.2 60 19 117/81 (93) 97 98.2 12/02/24 08:00 Room Air* 0 21 Total Intake and Output 12/01/24 12/01/24 12/02/24 15:00 23:00 07:00 Intake Total 100 ml 900 ml 1300 ml Output Total 400 ml Balance 100 ml 500 ml 1300 ml medications Current Medications Medications Dose Ordered Sig/Denis Route Start Time Stop Time Status Last Admin Dose Admin Sodium Chloride 10 ml Q8HR IV 11/30/24 14:00 12/02/24 05:20 10 ML Acetaminophen/ Hydrocodone Bitart 1 tab Q4HP PRN PO 11/30/24 10:30 Ondansetron HCl 4 mg Q4HP PRN IV 11/30/24 10:30 Docusate Sodium 100 mg BIDPRN PRN PO 11/30/24 10:30 Acetaminophen 650 mg Q6HP PRN PO 11/30/24 10:30 Morphine Sulfate 2 mg Q30M PRN IV 11/30/24 10:30 Piperacillin Sod/ Tazobactam Sod 100 ml @ 25 mls/hr Q8H IV 12/01/24 20:00 12/02/24 05:20 25 MLS/HR Dextrose/Sodium Chloride 1,000 ml @ 100 mls/hr Q10H IV 12/01/24 12:30 12/02/24 05:30 100 MLS/HR Examination General examination- Not in acute distress HEENT: PEERLA, no acute nasal discharge Chest: S1-S2 audible, rate and rhythm regular, no murmur Lung: CTAB, no wheeze or rhonchi Abdomen: Non-distend, BS+, non-tender, no organomegaly Musculoskeletal: no acute joint swelling or tenderness Lower extremity: no leg edema Neurological: cranial nerves intact, no acute dysarthria or dysphagia Psychiatry-- Normal mood and affect Skin- no acute rash or purpura laboratory and microbiology Laboratory Tests 12/02/24 06:08 Test 12/02/24 06:08 Range/Units Serum Glucose 101 74-106 mg/dL Problem List/Assessment/Plan Problem List/Assessment/Plan Possible Acute cholecystitis --> Elevated liver enzymes --> US evidence of Cholelithiasis, gallbladder sludge and gallbladder wall thickening with negative sonographic loredo's sign that may represent chronic cholecystitis or developing acute cholecystitis. ->Antibiotics: Zosyn 3.375 mg q8 hrs ( GFR: 93) --> Surgical consult--> pending Choledocholithiasis ruled out Left hepatic lobe may represent small hemangioma. Questionable evolving gallstone pancreatitis -->Lipase 54-->40 Hypokalemia Improved --> K: 3.4 --> Monitor electrolytes closely History of appendectomy Goal of care discussed for more than 35 minutes case and plan discussed with DR. Reema Godinez Thank you for allowing us to participate in the care of this patient. Please call if you have any questions or concerns. Plan discussed with: Patient, Spouse My Orders My Orders Orders - AYLIN ROJAS Procedure Category Date Status Time D5w/Sod Chlo 0.9% PHA 12/01/24 In Process (D5w Ns 0.9%) 12:30 AYLIN ROJAS Dec 02, 2024 12:35
--- NOTE | 2024-12-02 14:51 | DVHINCON2 ---
Date of service: Dec 02, 2024 Family History: Hypertension G8 FATHER Allergies: Coded Allergies: NO KNOWN ALLERGIES (Unverified , 04/19/24) Home Meds No Active Prescriptions or Reported Meds Current Medications Current Medications Medications (Trade) Dose Ordered Sig/Denis Route PRN Reason Start Time Stop Time Status Last Admin Piperacillin Sod/ Tazobactam Sod 100 ml @ 25 mls/hr Q8H IV 12/01/24 20:00 12/02/24 12:36 Vital Signs Vital Signs Date Time Temp Pulse Resp B/P (MAP) Pulse Ox O2 Delivery O2 Flow Rate FiO2 12/02/24 13:00 98.2 58 19 129/81 (97) 99 98.2 12/02/24 08:00 Room Air* 0 21 Labs/Diagnostic Data Labs Test 12/02/24 09:00 12/02/24 06:08 12/01/24 14:30 11/30/24 05:43 Range/Units Urine Opiates Screen Neg NEGATIVE Urine Fentanyl Screen Neg NEGATIVE Urine Barbiturates Screen Neg NEGATIVE Urine Phencyclidine Screen Neg NEGATIVE Urine Amphetamines Screen Neg NEGATIVE Urine Benzodiazepines Screen Neg NEGATIVE Urine Cocaine Screen Neg NEGATIVE Urine Cannabinoids Screen Neg NEGATIVE White Blood Count 5.8 4.4-10.8 10^3/uL Red Blood Count 4.90 4.5-5.90 10^6/uL Hemoglobin 14.9 13.5-17.5 g/dL Hematocrit 43.3 41.0-53.0 % Mean Corpuscular Volume 88.4 80.0-100.0 fL Mean Corpuscular Hemoglobin 30.3 28.0-32.0 pg Mean Corpuscular Hemoglobin Concent 34.3 32.0-36.0 g/dL Red Cell Distribution Width 13.4 11.8-14.3 % Platelet Count 293 140-450 10^3/uL Mean Platelet Volume 7.5 6.9-10.8 fL Neutrophils (%) (Auto) 52.2 37.0-80.0 % Lymphocytes (%) (Auto) 35.5 10.0-50.0 % Monocytes (%) (Auto) 8.6 0.0-12.0 % Eosinophils (%) (Auto) 3.1 0.0-7.0 % Basophils (%) (Auto) 0.6 0.0-2.0 % Neutrophils # (Auto) 3.0 1.6-8.6 10 ^3/uL Lymphocytes # (Auto) 2.1 0.4-5.4 10 ^3/uL Monocytes # (Auto) 0.5 0-1.3 10 ^3/uL Eosinophils # (Auto) 0.2 0-0.8 10 ^3/uL Basophils # (Auto) 0 0-0.2 10 ^3/uL Nucleated Red Blood Cells 0.1 % Sodium Level 140 136-145 mmol/L Potassium Level 4.0 3.5-5.1 mmol/L Chloride Level 107 98-107 mmol/L Carbon Dioxide Level 26 20-31 mmol/L Anion Gap 7 5-15 Blood Urea Nitrogen 8 L 9-23 mg/dL Creatinine 1.03 0.700-1.30 mg/dL Glomerular Filtration Rate Calc 92 >90 mL/min BUN/Creatinine Ratio 7.8 L 10.0-20.0 Serum Glucose 101 74-106 mg/dL Calcium Level 10.0 8.7-10.4 mg/dL Total Bilirubin 1.1 H 0.2-1.0 mg/dL Aspartate Amino Transferase (AST) 54 H 13-40 U/L Alanine Aminotransferase (ALT) 107 H 7-40 U/L Alkaline Phosphatase 123 H 46-116 U/L Total Protein 6.9 5.7-8.2 g/dL Albumin 4.4 3.2-4.8 g/dL Amylase Level 90 30-118 U/L Lipase 41 12-53 U/L Prothrombin Time 11.1 9.3-11.8 sec Prothrombin Time INR 1.05 0.9-1.15 Activated Partial Thromboplast Time 29.4 24.5-34.5 SEC Urine Color Light-yellow Yellow Urine Clarity Clear Clear Urine pH 5.5 5.0-9.0 Urine Specific [place] 1.011 1.001-1.035 Urine Protein Negative Negative Urine Ketones Negative Negative Urine Blood Negative Negative /uL Urine Nitrite Negative Negative Urine Bilirubin Negative Negative Urine Urobilinogen Normal Negative mg/dL Urine Leukocyte Esterase Negative Negative /uL Urine RBC <1 0 - 3 /hpf Urine WBC <1 0 - 3 /hpf Urine Squamous Epithelial Cells None seen <5 /hpf Urine Bacteria None seen None Seen /hpf Urine Glucose Normal Normal mg/dL Assessment [id number] RESOLVING BILIARY COLIC LFT TRENDING DOWN CONSIDER ELECTIVE GB SURGERY INDICATED ANF CONSIDERED CRISTIAN DIET CLEARED FOR DISCHARGE Plan discussed with: Patient KARAN JOAQUIN MD Dec 02, 2024 14:51
--- NOTE | 2024-12-02 19:19 | DVHINCON2 ---
DATE OF CONSULTATION: 12/02/2024 HISTORY OF PRESENT ILLNESS: This patient is 44 years old, coming in with right upper quadrant pain, now feeling better. There is no pain. No nausea, vomiting. No constipation, diarrhea. No hematemesis, melena. No bleeding per rectum. PAST MEDICAL HISTORY: No diabetes, hypertension. PAST SURGICAL HISTORY: No significant surgical history. PHYSICAL EXAMINATION: VITAL SIGNS: Afebrile, stable signs. HEENT: With no evidence of pallor, cyanosis, or jaundice. NECK: Supple, nontender with no thyromegaly or lymphadenopathy. CHEST AND LUNGS: Clear. HEART: Within normal limits. ABDOMEN: Soft, nontender. No rebound. EXTREMITIES: Unremarkable. NEUROLOGIC: Intact. CLINICAL IMPRESSION: Resolving biliary colic. Liver enzymes are mildly elevated, and trending down. The plan will be to consider surgery emergently and/or electively based upon ongoing evaluation. At this point, his biliary colic is resolved. His enzyme levels have to be within normal limits for me to consider gallbladder surgery, so recommendation is to have this done as an outpatient and he agrees on that and the followup can happen based upon instructions given and the patient agrees with the plan. MD VENECIA Graff/YOSEF TID: [id number] RECEIPT: [id number] cc: Theron Shankar
[2024-12-03 05:28] VITALS: BP 116/63; PULSE 62; RESP 16; TEMP 97.5; O2SAT 97
[2024-12-03 07:19] LABS: Albumin 4.2 g/dL (3.2-4.8); Anion Gap 7 (5-15); BUN/Creatinine Ratio 6.1 (10.0-20.0); Calcium 9.9 mg/dL (8.7-10.4); Carbon Dioxide 28 mmol/L (20-31); Chloride 106 mmol/L (98-107); Glucose 97 mg/dL (74-106); Sodium 141 mmol/L (136-145)
[2024-12-03 07:20] LABS: Bilirubin, Total 1.1 mg/dL (0.2-1.0); Total Protein 6.7 g/dL (5.7-8.2)
[2024-12-03 07:53] LABS: Alanine Aminotransferase 98 U/L (7-40); Alkaline Phosphatase 126 U/L (46-116); Aspartate Aminotransferase 53 U/L (13-40); Blood Urea Nitrogen 7 mg/dL (9-23)
[2024-12-03 09:00] VITALS: BP 125/85; PULSE 63; RESP 16; TEMP 97.9; O2SAT 96
[2024-12-03 13:00] VITALS: BP 131/94; PULSE 69; RESP 18; TEMP 97.9; O2SAT 98
--- NOTE | 2024-12-03 15:32 | DVHPN2 ---
Progress Note Date Seen: Dec 03, 2024 Medical Necessity Reason Pt with a Central, PICC or Fol: No Objective vital signs Vital Sign Date Time Temp Pulse Resp B/P (MAP) Pulse Ox O2 Delivery O2 Flow Rate FiO2 12/03/24 13:00 97.9 69 18 131/94 (106) 98 97.9 12/03/24 08:00 Room Air* 0 21 Total Intake and Output 12/02/24 12/02/24 12/03/24 15:00 23:00 07:00 Intake Total 100 ml 1550 ml 900 ml Balance 100 ml 1550 ml 900 ml medications Current Medications Medications Dose Ordered Sig/Denis Route Start Time Stop Time Status Last Admin Dose Admin Sodium Chloride 10 ml Q8HR IV 11/30/24 14:00 12/03/24 14:50 10 ML Acetaminophen/ Hydrocodone Bitart 1 tab Q4HP PRN PO 11/30/24 10:30 Ondansetron HCl 4 mg Q4HP PRN IV 11/30/24 10:30 Docusate Sodium 100 mg BIDPRN PRN PO 11/30/24 10:30 Acetaminophen 650 mg Q6HP PRN PO 11/30/24 10:30 Morphine Sulfate 2 mg Q30M PRN IV 11/30/24 10:30 Piperacillin Sod/ Tazobactam Sod 100 ml @ 25 mls/hr Q8H IV 12/01/24 20:00 12/03/24 12:00 25 MLS/HR Dextrose/Sodium Chloride 1,000 ml @ 100 mls/hr Q10H IV 12/01/24 12:30 12/03/24 02:29 100 MLS/HR laboratory and microbiology Laboratory Tests 12/03/24 06:11 12/02/24 06:08 Test 12/03/24 06:11 Range/Units Serum Glucose 97 74-106 mg/dL Problem List/Assessment/Plan Problem List/Assessment/Plan AFEBRILE VSS ABD SOFT MRCP NEG FOR CBD STONE LFT TRENDING DOWN CONSIDER INPT OR ELECTIVE LAP CHELSY BASED ON ONGOING EVAL PT TO DECIDE Plan discussed with: Patient KARAN JOAQUIN MD Dec 03, 2024 15:32
--- NOTE | 2024-12-03 16:05 | DVHPN2 ---
Progress Note Date Seen: Dec 03, 2024 Resident Creating Document: AYLIN ROJAS RESIDENT Medical Necessity Reason Pt with a Central, PICC or Fol: No Medical Necessity Reason No abdominal pain and tolerating fluid Pending discharge once able to tolerate soft diet Subjective Review of Systems The patient is a 44-year-old male with a past medical history of appendicitis s/p appendectomy presented to the [facility] ED with the chief complaint of right upper quadrant abdominal pain for a proximally 4 days duration. Per patient, the pain was rated 7/10, progressively became worse and it was associated with nausea, vomiting.In the ED, patient denied fever, chills, chest pain, shortness of headache, dizziness, diarrhea. Patient's vitals BP:150/90, heart rate 52, temp 98.1 F,SpO2 99% on RA. Blood work showed WBC 8.2, platelets 268, sodium 142, potassium 3.4, BUN 10, creatinine 0.89, GFR 108, glucose 104, lipase 54, AST 55, ALT 34. Imaging studies gallbladder US revealed cholelithiasis, gallbladder sludge and bladder wall thickening with negative sonographic Loredo's sign, mildly dilated CBD measuring 0.8 cm, choledocholithiasis can not be rule out. Thus, GI services was consulted for management. PN: 12/02/2024 Patient is seen and examined at the bedside today with family present. He denied any abdominal pain nausea or vomiting. Patient said he is feeling well and was wondering when he will get to see the surgeon. His lab values today total bilirubin of 1.1, AST on: 54, ALT 107, ALP 123. MRCP is negative for choledocholithiasis. pending surgical consult PN: 12/03/2024 Patient is seen and examined at the bedside today with family present. He denied any abdominal pain nausea or vomiting. He was seen by the surgeon recommended an elective cholecystectomy. Labs is fairly stable. T. rey:1.1, AST: 53, ALT 98, ALP 126. MRCP is negative for choledocholithiasis. Objective vital signs Vital Sign Date Time Temp Pulse Resp B/P (MAP) Pulse Ox O2 Delivery O2 Flow Rate FiO2 12/03/24 13:00 97.9 69 18 131/94 (106) 98 97.9 12/03/24 08:00 Room Air* 0 21 Total Intake and Output 12/02/24 12/02/24 12/03/24 15:00 23:00 07:00 Intake Total 100 ml 1550 ml 900 ml Balance 100 ml 1550 ml 900 ml medications Current Medications Medications Dose Ordered Sig/Denis Route Start Time Stop Time Status Last Admin Dose Admin Sodium Chloride 10 ml Q8HR IV 11/30/24 14:00 12/03/24 14:50 10 ML Acetaminophen/ Hydrocodone Bitart 1 tab Q4HP PRN PO 11/30/24 10:30 Ondansetron HCl 4 mg Q4HP PRN IV 11/30/24 10:30 Docusate Sodium 100 mg BIDPRN PRN PO 11/30/24 10:30 Acetaminophen 650 mg Q6HP PRN PO 11/30/24 10:30 Morphine Sulfate 2 mg Q30M PRN IV 11/30/24 10:30 Piperacillin Sod/ Tazobactam Sod 100 ml @ 25 mls/hr Q8H IV 12/01/24 20:00 12/03/24 12:00 25 MLS/HR Dextrose/Sodium Chloride 1,000 ml @ 100 mls/hr Q10H IV 12/01/24 12:30 12/03/24 02:29 100 MLS/HR Examination General examination- Not in acute distress HEENT: PEERLA, no acute nasal discharge Chest: S1-S2 audible, rate and rhythm regular, no murmur Lung: CTAB, no wheeze or rhonchi Abdomen: Non-distend, BS+, non-tender, no organomegaly Musculoskeletal: no acute joint swelling or tenderness Lower extremity: No leg edema Neurological: cranial nerves intact, no acute dysarthria or dysphagia Psychiatry-- Normal mood and affect Skin- no acute rash or purpura laboratory and microbiology Laboratory Tests 12/03/24 06:11 12/02/24 06:08 Test 12/03/24 06:11 Range/Units Serum Glucose 97 74-106 mg/dL Problem List/Assessment/Plan Problem List/Assessment/Plan Possible Acute cholecystitis--> inflammation improved --> Liver enzymes stable --> US evidence of Cholelithiasis, gallbladder sludge and gallbladder wall thickening with negative sonographic loredo's sign that may represent chronic cholecystitis or developing acute cholecystitis. --> Antibiotics: Zosyn 3.375 mg q8 hrs ( GFR: 93) --> planed is for outpatient elective cholecystectomy --> Stable for discharge --> Follow up at the GI clinic post discharge Choledocholithiasis ruled out Left hepatic lobe may represent small hemangioma. Questionable evolving gallstone pancreatitis -->Lipase 54-->40 Hypokalemia Improved --> K: 3.4 --> Monitor electrolytes closely History of appendectomy Goal of care discussed for more than 25 minutes Case and plan discussed with DR. Reema Godinez Thank you for allowing us to participate in the care of this patient. Please call if you have any questions or concerns. Plan discussed with: Patient, Spouse AYLIN ROJAS RESIDENT Dec 03, 2024 16:05
[2024-12-03] MEDS ORDERED: CIPR500T4 PO (16:17)
[2024-12-03] MEDS ORDERED: OMEP20TA PO (16:18)
[2024-12-03 17:00] VITALS: BP 125/89; PULSE 65; RESP 17; TEMP 97.9; O2SAT 100
[2024-12-05 09:20] LABS: Hepatitis B Core Total AB Negative (Negative)
[2024-12-05 12:41] LABS: Hepatitis A Total Antibody Positive (Negative); Hepatitis B Surface Antibody Negative (Negative); Hepatitis B Surface Antigen Negative (Negative); Hepatitis C Antibody Negative (Negative)
== END 2024-12-03 18:09 | disposition home or self-care (01) ==
LOC: ER 04:21 → OVERFLOW 10:18 → CENTRAL 14:28
PROVIDERS: ADMIT Internal Medicine; ATTEND Internal Medicine
DX: K80.00 Calculus of gallbladder with acute cholecystitis without obstruction (principal); K85.10 Biliary acute pancreatitis without necrosis or infection; D18.09 Hemangioma of other sites; E87.6 Hypokalemia; Z90.49 Acquired absence of other specified parts of digestive tract; Z82.49 Family history of ischemic heart disease and other diseases of the circulatory system
CPT/HCPCS: 36415; 74177; 74181; 76705; 80053; 80307; 81001; 82150; 83690; 85025; 85610; 85730; 86704; 86706; 86708; 86803; 87340; G0378; J2405; J2543; J7042